=== PATIENT | male | born 1970 | race Caucasian/White ===

== ENCOUNTER → 2021-04-19 | Outpatient (CLI) | payer OTHER ==
[~2021-04-19] MED LIST: ACETAMINOPHEN-1 EAC1 PO; ANTIBIOTIC28.4 GM TOP; BUSPAR 10MG10 MG PO; CIPROFLOXACIN500 M1 PO; DEPAKOTE ER500 MG PO; LEVETIRACETAM1000 MG PO; ROXICODONE TAB 55 MG PO; VALIUM 10 MG TA10 MG PO
== END ==
LOC: KOH-I 14:00
DX: S52.572A Other intraarticular fracture of lower end of left radius, initial encounter for closed fracture (principal)
CPT/HCPCS: 73200

== ENCOUNTER 2021-04-22 09:07 | Inpatient (IN) | payer OTHER ==
[~2021-04-22] VITALS: Ht 185.4 cm; Wt 132.4 kg
[~2021-04-22 09:07] MED LIST changes: -ACETAMINOPHEN-1 EAC1 PO; -ANTIBIOTIC28.4 GM TOP; -BUSPAR 10MG10 MG PO; -DEPAKOTE ER500 MG PO; -LEVETIRACETAM1000 MG PO; -ROXICODONE TAB 55 MG PO; -VALIUM 10 MG TA10 MG PO
[2021-04-22] MEDS ORDERED: ROXICODONE TAB 55 MG PO (10:00)
[2021-04-22] MEDS ORDERED: ACETAMINOPHEN-1 EAC1 PO (10:01)
[2021-04-22 10:17] LABS: HEMOGLOBIN 14.2 gm/dl (14.0-17.5); RED BLOOD COUNT 4.49 M/UL (4.20-5.50); WHITE BLOOD COUNT 9.2 K/UL (4.5-11.0)
[2021-04-22 10:32] LABS: BUN/CREATININE RATIO 14 (0-10)
[2021-04-22 19:22] LABS: RED BLOOD COUNT 4.38 M/UL (4.20-5.50); WHITE BLOOD COUNT 12.2 K/UL (4.5-11.0)
[2021-04-22 19:47] LABS: BUN/CREATININE RATIO 13 (0-10)
[2021-04-22 20:26] LABS: BUN/CREATININE RATIO 15 (0-10)
[2021-04-23 07:14] LABS: BUN/CREATININE RATIO 22 (0-10)
[2021-04-23 07:17] LABS: HEMOGLOBIN 12.9 gm/dl (14.0-17.5); WHITE BLOOD COUNT 13.4 K/UL (4.5-11.0)
[2021-04-23] MEDS ORDERED: VALIUM 10 MG TA10 MG PO (10:01)
[2021-04-23] MEDS ORDERED: LEVETIRACETAM1000 MG PO (10:02)
[2021-04-23] MEDS ORDERED: BUSPAR 10MG10 MG PO (10:02)
[2021-04-23] MEDS ORDERED: DEPAKOTE ER500 MG PO (10:04)
[2021-04-23 13:11] LABS: BUN/CREATININE RATIO 24 (0-10)
[2021-04-23] MEDS ORDERED: ANTIBIOTIC28.4 GM TOP (16:12)
[2021-04-24 03:30] LABS: HEMOGLOBIN 11.8 gm/dl (14.0-17.5); RED BLOOD COUNT 3.77 M/UL (4.20-5.50)
[2021-04-24 04:19] LABS: BUN/CREATININE RATIO 18 (0-10)
[2021-04-25 02:28] LABS: HEMOGLOBIN 11.2 gm/dl (14.0-17.5); RED BLOOD COUNT 3.51 M/UL (4.20-5.50); WHITE BLOOD COUNT 12.4 K/UL (4.5-11.0)
[2021-04-25 02:51] LABS: BUN/CREATININE RATIO 20 (0-10)
[2021-04-26 02:58] LABS: HEMOGLOBIN 10.9 gm/dl (14.0-17.5); RED BLOOD COUNT 3.49 M/UL (4.20-5.50); WHITE BLOOD COUNT 9.6 K/UL (4.5-11.0)
[2021-04-26 03:16] LABS: BUN/CREATININE RATIO 14 (0-10)
[2021-04-27 03:48] LABS: HEMOGLOBIN 11.8 gm/dl (14.0-17.5); RED BLOOD COUNT 3.78 M/UL (4.20-5.50); WHITE BLOOD COUNT 10.7 K/UL (4.5-11.0)
[2021-04-27 03:59] LABS: BUN/CREATININE RATIO 16 (0-10)
[2021-04-27] MEDS ORDERED: LEVOFLOXACIN750 MG PO (08:30)
[2021-04-27] MEDS ORDERED: CEPHALEXIN500 MG PO (08:30)
[2021-04-27] MEDS ORDERED: COMBIVENT RESPIM4 GM INH (08:30)
== END 2021-04-27 09:55 | disposition home or self-care (01) | DRG 500 ==
LOC: OR 09:07 → CCU 21:03 → PROG CARE 04-23 00:16 → OR 04-23 00:16 → CCU 04-23 00:16 → PROG CARE 04-23 14:55
PROVIDERS: Internal Medicine; Internal Medicine Nephrology; ADMIT Orthopaedic Surgery
PROC: 0PSJ04Z Reposition Left Radius with Internal Fixation Device, Open Approach (ICD-10-PCS; 2021-04-22)
PROC: 01N50ZZ Release Median Nerve, Open Approach (ICD-10-PCS; 2021-04-22)
PROC: 0PUJ07Z Supplement Left Radius with Autologous Tissue Substitute, Open Approach (ICD-10-PCS; 2021-04-22)
PROC: 5A09357 Assistance with Respiratory Ventilation, Less than 24 Consecutive Hours, Continuous Positive Airway Pressure (ICD-10-PCS; principal; 2021-04-22 17:00)
PROC: 0JQH0ZZ Repair Left Lower Arm Subcutaneous Tissue and Fascia, Open Approach (ICD-10-PCS; 2021-04-24)
PROC: 3E03329 Introduction of Other Anti-infective into Peripheral Vein, Percutaneous Approach (ICD-10-PCS; 2021-04-26)
PROC: 0KQB0ZZ Repair Left Lower Arm and Wrist Muscle, Open Approach (ICD-10-PCS; 2021-04-26)
DX: S52.572A Other intraarticular fracture of lower end of left radius, initial encounter for closed fracture (principal); J18.9 Pneumonia, unspecified organism; J95.821 Acute postprocedural respiratory failure; J44.9 Chronic obstructive pulmonary disease, unspecified; E87.6 Hypokalemia; E87.5 Hyperkalemia; Z20.822 Contact with and (suspected) exposure to COVID-19; G47.33 Obstructive sleep apnea (adult) (pediatric); F17.200 Nicotine dependence, unspecified, uncomplicated; Z96.611 Presence of right artificial shoulder joint; G40.909 Epilepsy, unspecified, not intractable, without status epilepticus; Z79.899 Other long term (current) drug therapy; Z82.49 Family history of ischemic heart disease and other diseases of the circulatory system; Z82.3 Family history of stroke; G56.02 Carpal tunnel syndrome, left upper limb
CPT/HCPCS: 36415; 36600; 71045; 71250; 73110; 76000; 80048; 80053; 81001; 82550; 82553; 82803; 83880; 84132; 84133; 84300; 84484; 85025; 85027; 93005; 94640; 94660; 94664; 94760; C1713; C1762; J0690; J1100; J1650; J1885; J1953; J2001; J2250; J2270; J2405; J2543; J2704; J2795; J3010; J3360; J7030; J7120; U0002

== ENCOUNTER → 2021-09-23 | Outpatient (CLI) | payer OTHER ==
[~2021-09-23] MED LIST changes: +ACETAMINOPHEN-1 EAC1 PO; +ANTIBIOTIC28.4 GM TOP; +BUSPAR 10MG10 MG PO; +CALCIUM500 MG PO; +CEPHALEXIN500 MG PO; +COMBIVENT RESPIM4 GM INH; +DEPAKOTE ER500 MG PO; +HYDROCODON-ACE1 EAC6 PO; +LEVETIRACETAM1000 MG PO; +LEVOFLOXACIN750 MG PO; +OMEPRAZOLE20 M1 PO; +ROXICODONE TAB 55 MG PO; +VALIUM 10 MG TA10 MG PO; +VITAMIN C 500500 MG PO; +VITAMIN D21250 MCG PO
[2021-09-23 11:13] LABS: HEMOGLOBIN 15.8 gm/dl (14.0-17.5); RED BLOOD COUNT 4.96 M/UL (4.20-5.50); WHITE BLOOD COUNT 9.2 K/UL (4.5-11.0)
[2021-09-23 11:36] LABS: BUN/CREATININE RATIO 17 (0-10)
== END ==
LOC: OPSV2 10:00
PROVIDERS: Orthopaedic Surgery
DX: Z01.818 Encounter for other preprocedural examination (principal)
CPT/HCPCS: 36415; 80048; 81001; 85027; 85610; 85730; 87086; 93005